=== PATIENT | male | born 1980 | race Caucasian/White ===

== ENCOUNTER 2020-02-24 08:55 | Emergency (ER) | payer SELFPAY ==
[2020-02-24] MEDS ORDERED: Tetracaine HCl 0.5% Ophth Soln 2 ML Bottle ONE (09:31)
[2020-02-24] MEDS ORDERED: Fluorescein Opthalmic Strip ONE (09:31)
== END 2020-02-24 10:00 | disposition home or self-care (01) ==
LOC: NAV ERS 08:55
DX: H00.012 Hordeolum externum right lower eyelid (principal); Z87.891 Personal history of nicotine dependence
CPT/HCPCS: 99283

== ENCOUNTER 2024-01-17 08:37 | Emergency (ER) | payer SELFPAY ==
[2024-01-17] MEDS ORDERED: Lidocaine/Transparent Dressing 1 EACH KIT ONE (08:50)
== END 2024-01-17 10:09 | disposition home or self-care (01) ==
LOC: NAV ERS 08:37
DX: K64.4 Residual hemorrhoidal skin tags (principal); F17.210 Nicotine dependence, cigarettes, uncomplicated; Z55.6 Problems related to health literacy
CPT/HCPCS: 99283